=== PATIENT | male | born 1975 | race Caucasian/White ===

== ENCOUNTER → 2019-01-07 | Outpatient (CLI) | payer BC ==
--- NOTE | 2019-01-07 07:52 | US ---
EXAMINATION TYPE: US abdomen complete DATE OF EXAM: 01/07/2019 COMPARISON: NONE CLINICAL HISTORY: R10.9 Abdominal Pain (RUQ) EXAM MEASUREMENTS: Liver Length: 11.5 cm Gallbladder Wall: 0.1 cm CBD: 0.4 cm Spleen: 11.1 cm Right Kidney: 10.3 x 4.4 x 5.5 cm Left Kidney: 10.6 x 5.3 x 5.1 cm Pancreas: Tail obscured by overlying bowel gas, otherwise wnl Liver: wnl Gallbladder: wnl Evidence for sonographic Maher's sign: no CBD: wnl Spleen: mostly obscured by overlying bowel gas, portions visualized wnl Right Kidney: No hydronephrosis or masses seen Left Kidney: No hydronephrosis or masses seen, slightly obscured by overlying bowel gas Upper IVC: wnl Abd Aorta: wnl as seen, bifurcation obscured by bowel gas The liver is homogenous. The intrahepatic portion of the IVC and proximal abdominal aorta are within normal limits. There is no evidence of cholelithiasis. Common bile duct is unremarkable. The visu alized portions of the pancreas are homogenous. The spleen is unremarkable. Kidneys are symmetric a nd free of hydronephrosis. No renal lesions are seen. IMPRESSION: Unremarkable abdominal ultrasound other than partial visualization of some structures as detailed above obscured by overlying bowel gas. No sonographic evidence of cholelithiasis nor acute c holecystitis.
== END | disposition home or self-care (01) ==
LOC: RADUSWWP 07:09
PROVIDERS: ATTEND Family Medicine
DX: R10.9 Unspecified abdominal pain (principal)
CPT/HCPCS: 76700